=== PATIENT | female | born 1995 | race Caucasian/White ===

== ENCOUNTER 2020-04-02 08:56 | Outpatient (CLI) | payer OTHER, SELFPAY ==
--- NOTE | ~2020-04-02 | MR_ITS ---
EXAMINATION: MR lumbar spine wo con EXAM DATE: 04/02/2020 09:57 INDICATION: Displacement of intervertebral disc. Worsening back pain. Painful to bend over. TECHNIQUE: Multi-sequential, multiplanar MR images of the lumbar spine were obtained without contrast . Sagittal T1, T2, T2 fat saturation images. Axial T2 weighted images. There is no prior study for comparison. FINDINGS: There are no suspicious marrow signal abnormalities. Paraspinal soft tissue is unremarkable . The vertebral bodies are aligned in the AP dimension. Mild loss of the L4-5 and L5-S1 disc heights with small annular fissures. The conus medullaris terminates at the T12-L1 level and has normal signa l intensity and morphology. Level by level evaluation: T12-L1: Disc does not extend beyond the endplate margin. Facet arthropathy: None. Neural foraminal stenosis: No stenosis. Central canal stenosis: No stenosis. L1-L2: Disc does not extend beyond the endplate margin. Facet arthropathy: None. Neural foraminal stenosis: No stenosis. Central canal stenosis: No stenosis. L2-L3: Disc does not extend beyond the endplate margin. Facet arthropathy: None. Neural foraminal stenosis: No stenosis. Central canal stenosis: No stenosis. L3-L4: Disc does not extend beyond the endplate margin. Facet arthropathy: None. Neural foraminal stenosis: No stenosis. Central canal stenosis: No stenosis. L4-L5: There is a mild diffuse disc bulge. Facet arthropathy: Mild. Neural foraminal stenosis: Mild right, minimal left. Central canal stenosis: Mild. L5-S1: There is a mild diffuse disc bulge with superimposed small to moderate-sized central protrusio n Facet arthropathy: Mild. Neural foraminal stenosis: No stenosis. Central canal stenosis: Mild. IMPRESSION: 1. Mild lumbar spondylosis. Reviewed, dictated and finalized at location A. IMPRESSION: 1. Mild lumbar spondylosis.
== END 2020-04-02 08:57 | disposition home or self-care (01) ==
LOC: ANHIMG 09:05
PROVIDERS: Visit Provider Physician Assistant
DX: M51.26 Other intervertebral disc displacement, lumbar region (principal); M47.896 Other spondylosis, lumbar region
CPT/HCPCS: 72148

== ENCOUNTER 2020-11-19 09:05 | Emergency (ER) | payer OTHER, SELFPAY ==
[2020-11-19 09:23] VITALS: BP 125/80; PULSE 87; RESP 16; TEMP 37.2; O2SAT 99
--- NOTE | 2020-11-19 09:29 | ED.URI ---
HPI - URI/Sore Throat General Chief Complaint: Upper Respiratory Infection Stated Complaint: sore throat Time Seen by Provider: 11/19/20 09:29 Source: patient and RN notes reviewed History of Present Illness HPI Narrative: Patient is a 25-year-old female who presents the urgent care with complaints of a sore throat since yesterday. Patient also reports of some pressure in the ears, mild nonproductive cough, and runny nose. Patient states that she has not taken anything [id number] for her symptoms and does have some mild seasonal allergies occasionally. Denies of any fever, chills, nausea, vomiting. Denies of any known exposure to strep, influenza or Covid. No other acute complaints. No acute distress noted. Patient aware of the plan of care. Some parts of this dictation were generated by voice recognition software and may contain typographical and/or grammatical inaccuracies. Related Data Home Medications Medication Instructions Recorded Confirmed bupropion HCl 300 mg PO DAILY 11/19/20 11/19/20 hydroxyzine pamoate 25 mg PO DAILY 11/19/20 11/19/20 norethindrone-e.estradiol-iron [Lo 1 tablet PO DAILY 11/19/20 11/19/20 Loestrin Fe] Allergies Allergy/AdvReac Type Severity Reaction Status Date / Time Penicillins Allergy Unknown rash Verified 11/19/20 09:41 Review of Systems Review of Systems: Narrative: CONSTITUTIONAL: Denies fever, chills, or sweats. EYES: Denies visual changes, redness, or discharge. ENT: Reports of mild ear pressure, sore throat, runny nose CARDIOVASCULAR: Denies chest pain, palpitations, or edema. RESPIRATORY: Reports a mild nonproductive cough without dyspnea GASTROINTESTINAL: Denies abdominal pain, nausea, vomiting, or diarrhea. GENITOURINARY: Denies dysuria or hematuria. SKIN: Denies rash or itching. MUSCULOSKELETAL: Denies back pain, joint pain, or myalgia. NEUROLOGIC: Denies headache, numbness, or weakness. All other systems reviewed are negative, except as documented in HPI. PMFSH Comments At the time of my signature, I reviewed and agree with the nursing past medical, surgical, social, and family history. There is no relevant family history pertinent to the patient complaint. Exam Narrative: Exam Narrative: GENERAL: This is a well-nourished, well-developed patient, in no apparent distress. HEAD: normocephalic, atraumatic. EYES: PERRL. Sclera clear/white. Vision is grossly intact. EARS: External ears normal, auditory canals clear and without drainage, TMs normal without perforation. Hearing grossly intact. NOSE: External nose normal with no obvious nasal discharge, nares without redness, no rhinorrhea. THROAT: Mucous membranes moist, mild erythema noted posterior oropharynx with mild postnasal drainage NECK: Neck supple, non-tender without lymphadenopathy, masses or thyromegaly. CARDIOVASCULAR: Regular rate and rhythm without murmurs, gallops, or rubs. RESPIRATORY: Clear to auscultation. Breath sounds equal bilaterally. No wheezes, rales, or rhonchi. SKIN: warm, intact with no suspicious lesions or rash, good texture and turgor. NEURO: awake, alert, and oriented to person, place and time. There were no obvious focal neurologic abnormalities. EXTREMITIES: No clubbing, cyanosis, or edema. Course Vital Signs Vital signs: Vital Signs Temperature 98.9 F 11/19/20 09:23 Pulse Rate 87 11/19/20 09:23 Respiratory Rate 16 11/19/20 09:23 Blood Pressure 125/80 11/19/20 09:23 Pulse Oximetry 99 11/19/20 09:23 Temperature 98.9 F 11/19/20 09:23 Pulse Rate 87 11/19/20 09:23 Respiratory Rate 16 11/19/20 09:23 Blood Pressure 125/80 11/19/20 09:23 Pulse Oximetry 99 11/19/20 09:23 Reviewed MDM - URI/Sore Throat MDM Narrative Medical decision making narrative: Reviewed lab results with the patient. She is aware that her strep swab was negative. Educated patient on culture we will call within 72 hours if culture is positive and antibiotics are necessary. Advise
== END 2020-11-19 09:47 | disposition home or self-care (01) ==
PROVIDERS: Emergency Provider Nurse Practitioner Family; PCP Physician Assistant
DX: J02.9 Acute pharyngitis, unspecified (principal); F41.9 Anxiety disorder, unspecified
CPT/HCPCS: 87081; 87880; 99213; G0463

== ENCOUNTER 2022-04-20 17:13 | Emergency (ER) | payer OTHER, SELFPAY ==
[2022-04-20 17:28] VITALS: BP 122/74; PULSE 101; RESP 16; TEMP 36.4; O2SAT 99
--- NOTE | 2022-04-20 17:48 | ED.URI ---
HPI - URI/Sore Throat General Chief Complaint: Upper Respiratory Infection Stated Complaint: Sore Throat Time Seen by Provider: 04/20/22 17:48 Source: patient and RN notes reviewed Mode of arrival: ambulatory Limitations: no limitations History of Present Illness HPI Narrative: 26-year-old female presented for complaints of sore throat, body ache, fevers and chills since yesterday. Endorses fever up to 102 yesterday. She is not taking anything for symptoms. She endorses feeling slightly better today. 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 She denies cough, shortness of breath, wheezing, vomiting or diarrhea. MD elicited complaint: cough Related Data Home Medications Medication Instructions Recorded Confirmed bupropion HCl 300 mg 24 hr tablet, 300 mg PO DAILY 11/19/20 04/20/22 extended release norethindrone 1 mg-ethinyl 1 tablet PO DAILY 11/19/20 04/20/22 estradiol 10 mcg (24)-iron 10 mcg(2) tablet (Lo Loestrin Fe) Allergies Allergy/AdvReac Type Severity Reaction Status Date / Time Penicillins Allergy Unknown rash Verified 04/20/22 17:47 Review of Systems Review of Systems: CONSTITUTIONAL: Endorses malaise, chills, sweats, fever EYES: Denies visual changes, redness, or discharge ENT: Reports rhinorrhea, congestion, otalgia, sore throat CARDIOVASCULAR: Denies chest pain, palpitations, edema RESPIRATORY: Denies dyspnea GASTROINTESTINAL: Denies abdominal pain, nausea, vomiting, diarrhea SKIN: Denies rash or itching MUSCULOSKELETAL: Endorses myalgia NEUROLOGIC: Denies headache Exam Narrative: GENERAL: Ill-appearing, nontoxic EYES: PERRLA, conjunctivae clear ENT: Mucous membranes moist. TMs pearly evans with dull light reflex bilaterally; no tragal tenderness. Oropharynx erythematous without lesions or exudate, no drooling, no hoarseness, no trismus, uvula midline. No tripod positioning, muffled voice, soft palate or pharyngeal wall bulging NECK: Supple. No lymphadenopathy CHEST: Clear to auscultation, breath sounds equal. HEART: Regular rate and rhythm. No murmur heard. SKIN: Warm, dry, no rash. NEURO: Alert and oriented x3. Course Course Emergency Course: Patient is aware of diagnosis, understands and agrees to treatment plan. Anticipatory guidance given. Patient agrees to follow-up as directed and is aware of reasons to seek care at the emergency department. Portions of this record may have been created with voice recognition software Level of Care: Express Care Visit Vital Signs Vital signs: Vital Signs Temperature 97.5 F L 04/20/22 17:28 Pulse Rate 101 H 04/20/22 17:28 Respiratory Rate 16 04/20/22 17:28 Blood Pressure 122/74 04/20/22 17:28 Pulse Oximetry 99 04/20/22 17:28 Oxygen Delivery Room Air 04/20/22 17:28 Temperature 97.5 F L 04/20/22 17:28 Pulse Rate 101 H 04/20/22 17:28 Respiratory Rate 16 04/20/22 17:28 Blood Pressure 122/74 04/20/22 17:28 Pulse Oximetry 99 04/20/22 17:28 Oxygen Delivery Room Air 04/20/22 17:28 reviewed MDM - URI/Sore Throat MDM Narrative Medical decision making narrative: Influenza positive. Result reviewed with patient. Declines Tamiflu. Advised supportive measures and signs/symptoms to go to the ER. Pt is appropriate for outpt treatment and f/u. Differential Diagnosis Differential diagnosis: Likely upper respiratory infection, sinusitis, viral infection, influenza and pharyngitis Discharge Plan Discharge Clinical Impression: Influenza Patient Disposition: Home, Self-Care Condition: Stable Instructions: Influenza (ED) Additional Instructions: Infulenza positive You should avoid crowds/work until you are fever free for 24 hours without the use of fever reducing medications, or the symptoms are improved Rest. Drink plenty of fluids. Tylenol 1000mg every 8 hours & Motrin every 8 hours as needed for pain/fever Over the counter medications as needed for symptoms Follow up wi
== END 2022-04-20 18:00 | disposition home or self-care (01) ==
PROVIDERS: Emergency Provider Nurse Practitioner Family; PCP Physician Assistant
DX: J10.1 Influenza due to other identified influenza virus with other respiratory manifestations (principal)
CPT/HCPCS: 87081; 87804; 87880; 99213; G0463

== ENCOUNTER 2023-05-18 08:52 | Emergency (ER) | payer OTHER, SELFPAY ==
--- NOTE | 2023-05-18 08:59 | ED.GENADULT ---
HPI - General Adult General Chief complaint: Upper Respiratory Infection Stated complaint: not feeling well, sore throat Source: patient and RN notes reviewed History of Present Illness HPI narrative: 27 yo F presents to urgent care with complaints of not feeling well. Pt states on Wednesday evening, she began with a sore throat. Pt states yesterday she began with a runny nose, head pressure, a burning in her chest, a productive cough, and feeling achy. Pt states today her chest no longer le but continues with the other symptoms. Pt also reports bilateral ear pain/pressure. Pt did take an ibuprofen yesterday. Pt denies any chest pain, SOB, vomiting, diarrhea, or known fevers. Related Data Home Medications Medication Instructions Recorded Confirmed bupropion HCl 300 mg 24 hr tablet, 300 mg PO DAILY 11/19/20 05/18/23 extended release norethindrone 1 mg-ethinyl 1 tablet PO DAILY 11/19/20 05/18/23 estradiol 10 mcg (24)-iron 10 mcg(2) tablet (Lo Loestrin Fe) sertraline 25 mg tablet 25 mg PO DAILY 05/18/23 05/18/23 Allergies Allergy/AdvReac Type Severity Reaction Status Date / Time Penicillins Allergy Unknown rash Verified 04/20/22 17:47 Review of Systems Review of Systems: Pertinent positives and pertinent negatives per HPI. PMFSH Comments At the time of my signature, I reviewed and agree with the nursing past medical, surgical, social, and family history. There is no relevant family history pertinent to the patient complaint. Exam Narrative: GENERAL: This is a well-nourished, well-developed patient, in no apparent distress. HEAD: normocephalic, atraumatic. EYES: Sclera clear/white. Vision is grossly intact. EARS: External ears normal, auditory canals clear and without drainage, TMs normal without perforation. Hearing grossly intact. NOSE: External nose normal with no obvious nasal discharge, nares without redness, no rhinorrhea. THROAT: Mucous membranes moist, posterior pharynx erythremic. no exudate. Hoarse voice. NECK: Neck supple, non-tender without lymphadenopathy, masses or thyromegaly. CARDIOVASCULAR: Regular rate and rhythm without murmurs, gallops, or rubs. RESPIRATORY: Clear to auscultation. Breath sounds equal bilaterally. No wheezes, rales, or rhonchi. GASTROINTESTINAL: Abdomen soft, non-tender, nondistended. Bowel sounds are active. No hepato-splenomegaly, or palpable masses. No guarding. SKIN: warm, intact with no suspicious lesions or rash, good texture and turgor. NEURO: awake, alert, and oriented to person, place and time. There were no obvious focal neurologic abnormalities. Course Course Level of Care: Express Care Visit Vital Signs Vital signs: Vital Signs Temperature 99.1 F 05/18/23 09:08 Pulse Rate 90 05/18/23 09:08 Respiratory Rate 20 05/18/23 09:08 Blood Pressure 123/81 05/18/23 09:08 Pulse Oximetry 99 05/18/23 09:08 Oxygen Delivery Room Air 05/18/23 09:08 Temperature 99.1 F 05/18/23 09:08 Pulse Rate 90 05/18/23 09:08 Respiratory Rate 20 05/18/23 09:08 Blood Pressure 123/81 05/18/23 09:08 Pulse Oximetry 99 05/18/23 09:08 Oxygen Delivery Room Air 05/18/23 09:08 Reviewed Medical Decision Making MDM Narrative Medical decision making narrative: Viral illness may last between 7-12days; antibiotic is NOT recommended at this time. Recommend antihistamine such as Benadryl at night time and Claritin/Zyrtec/Mindy during the day. Increase your Vitamin C intake. Steam from hot showers help with congestion. Also, recommend symptomatic treatment includes: rest, fluids, increase humidity of the air at home with a humidifier in the bedroom. Recommend Acetaminophen or nonsteroidal anti-inflammatory agents(NSAIDs) as directed in the bottle to reduce fever and/pain/headache. Avoid smoking/second-hand smoke. Frequent hand washing or hand chemical radiation technician is one of the best ways to prevent spread of infection. Differential Diagnosis Diffe
[2023-05-18 09:08] VITALS: BP 123/81; PULSE 90; RESP 20; TEMP 37.3; O2SAT 99
== END 2023-05-18 09:36 | disposition home or self-care (01) ==
PROVIDERS: Emergency Provider Nurse Practitioner Family; PCP Physician Assistant
DX: B34.9 Viral infection, unspecified (principal); J04.0 Acute laryngitis; F41.9 Anxiety disorder, unspecified
CPT/HCPCS: 87081; 87880; 99213; G0463